=== PATIENT | male | born 1990 | race African-American/Black ===

== ENCOUNTER 2021-04-30 11:14 | Emergency (ER) | payer OTHER ==
[~2021-04-30] VITALS: Ht 180.3 cm; Wt 91.6 kg
[2021-04-30 11:20] VITALS: BP 144/90
--- NOTE | 2021-04-30 12:51 | REP ---
INDICATION: severe headache while lifting--posterior. COMPARISON: None. TECHNIQUE: CT brain performed in the axial plane. Coronal reconstruction images are performed. FINDINGS: The ventricles are normal in size and position.. There is no midline shift or mass effect. Trotter-white differentiation is well maintained. There is no acute intracranial hemorrhage or extra-axial fluid collection. Bone window examination is unremarkable. The visualized mastoid air cells and paranasal sinuses are clear. IMPRESSION: Negative noncontrast CT brain. <Electronically signed by Simba Trotter > 04/30/21 [id number]
--- NOTE | 2021-05-01 07:18 | ECGEPIP ---
[facility] - ED Test Date: 2021-04-30 Pat Name: JESUS FRENCH Department: Room: - Gender: Male Digital Marketing Strategist: ANNEL : 1990 Requested By: MIKIE SCHMIDT PA-C. Order Number: [id number] Reading MD: Dick Sorto Measurements Intervals [place] Rate: 53 P: 37 VT: 150 QRS: -20 QRSD: 92 T: -13 QT: 388 QTc: 364 Interpretive Statements Sinus bradycardia Minimal voltage criteria for LVH, may be normal variant ( R in aVL ) BENIGN EARLY REPOLARIZATION NONSPECIFIC T WAVE ABNORMALITY(S) consider inferior ischemia NO PRIORS FOR COMPARISON Electronically Signed on 05-01-2021 7:17:59 EDT by Dick Sorto
== END 2021-04-30 13:31 | disposition home or self-care (01) ==
LOC: M ED 11:14
DX: G44.209 Tension-type headache, unspecified, not intractable (principal); R55 Syncope and collapse; R94.31 Abnormal electrocardiogram [ECG] [EKG]

== ENCOUNTER 2023-02-12 14:41 | Emergency (ER) | payer OTHER ==
[~2023-02-12] VITALS: Ht 180.3 cm; Wt 88.6 kg
[2023-02-12] MEDS ORDERED: ACETAMINOPHEN 500 MG TAB PO ONE (15:05)
[2023-02-12] MEDS ORDERED: IBUPROFEN 600MG TAB PO ONE (15:05)
[2023-02-12] MEDS ORDERED: MAGICMW SSP (16:10)
[2023-02-12] MEDS ORDERED: AMOX500C PO (16:10)
[2023-02-12 16:12] VITALS: BP 133/68
== END 2023-02-12 16:18 | disposition home or self-care (01) ==
LOC: M ED 14:41
DX: J02.0 Streptococcal pharyngitis (principal)

== ENCOUNTER 2023-05-04 11:15 | Emergency (ER) | payer OTHER ==
[~2023-05-04] VITALS: Ht 180.3 cm; Wt 87.6 kg
[~2023-05-04 11:15] MED LIST: AMOX500C PO; MAGICMW SSP
[2023-05-04 14:58] VITALS: BP 131/81; TEMP 96.7; O2SAT 99
== END 2023-05-04 16:02 | disposition home or self-care (01) ==
LOC: M ED 11:15
DX: S93.402A Sprain of unspecified ligament of left ankle, initial encounter (principal); S83.92XA Sprain of unspecified site of left knee, initial encounter; X50.0XXA Overexertion from strenuous movement or load, initial encounter; Y92.89 Other specified places as the place of occurrence of the external cause; Y93.89 Activity, other specified; Y99.0 Civilian activity done for income or pay